=== PATIENT | female | born 1960 | race Caucasian/White ===

== ENCOUNTER 2019-01-12 06:06 | Inpatient (IN) | payer OTHER, SELFPAY ==
[2018-12-29 07:57] VITALS: BMI 25.3
[2019-01-12] VITALS (19 sets, daily range): BP systolic 99–128; BP diastolic 53–91; PULSE 68–898; RESP 5–96; TEMP 35.9–36.9; O2SAT 13–99; BMI 24.9
--- NOTE | 2019-01-12 | DI.RAD.S_ITS ---
PROCEDURE: XR HIP W PEL IF DONE LT 2V INDICATIONS: POST OPERATIVE LEFT HIP TECHNIQUE: AP pelvis and lateral view of the left hip acquired. [facility] 10[id number]FOR[facility], 03/13/2017, 12:35. FINDINGS: Bones: Patient is status post left hip arthroplasty, with hardware components in expected positions. The hip joint appears congruent. The visualized bony structures appear intact. Soft tissues: Overlying postoperative changes are noted. No suspicious soft tissue densities. IMPRESSION: Prior right total hip arthroplasty appears intact, normal alignment after placement of left total hip arthroplasty today. Dictated by: Mayur Broderick M.D. on 01/12/2019 at 13:48 Approved by: Mayur Broderick M.D. on 01/12/2019 at 13:49
--- NOTE | 2019-01-12 06:00 | DI.RAD.S_ITS ---
PROCEDURE: XR HIP W PEL IF DONE LT 2V INDICATIONS: left SARABJIT, anterior TECHNIQUE: 2 view(s) of the hip acquired. COMPARISON: [facility], CR, [id number] W PEL IF PERFORMED, 03/13/2017, 12:35. FINDINGS: Bones: Patient is status post preparation for subsequent left-sided total hip arthroplasty, with preliminary hardware components in expected positions. The hip joint appears congruent. The visualized bony structures appear intact. Soft tissues: Overlying intraoperative changes are noted. No suspicious soft tissue densities. IMPRESSION: Preparation for placement of spinal components of left total hip arthroplasty, normal alignment established. Dictated by: Mayur Broderick M.D. on 01/12/2019 at 12:09 Approved by: Mayur Broderick M.D. on 01/12/2019 at 12:10
[2019-01-12] MEDS: LACTATED RINGERS 1,000 ML 42 ML IV ×3 (06:46→12:34)
[2019-01-12] MEDS: VANCOMYCIN 1,000 MG/200 ML PIGGYBACK 200 MG IV (06:54)
[2019-01-12] MEDS: ACETAMINOPHEN 325 MG TABLET 975 MG PO ×3 (06:55→20:43)
[2019-01-12] MEDS: PREGABALIN 75 MG CAPSULE PO (06:56)
--- NOTE | 2019-01-12 07:42 | PC.NURSE ---
Day shift: Not on AC unit at this time.
--- NOTE | 2019-01-12 07:44 | P.OP_ITS ---
Operative Date/Time/Diagnoses Date of procedure: 01/12/19 Time of procedure: 07:59 Pre-op diagnosis: left hip OA Post-op diagnosis: same Procedure & Clinicians Procedure: left total hip arthroplasty Same procedure as scheduled: Yes Indications: The patient has had progressively worsening left hip pain with radiographic changes consistent with arthritis. Non-operative management has failed and the patient has requested total hip replacement. The risks, benefits and alternatives to surgery were discussed with the patient prior to proceeding. Risks discussed included, but were not limited to, failure to relieve pain, leg length discrepancy, dislocation, stiffness, infection, nerve damage, deep venous thrombosis, pulmonary embolism, stroke, coma, heart attack, permanent paralysis and , as well as the potential need for eventual revision of the prosthetic. Surgeon: Zoë Rice Corporate Representative: Karissa Zendejas Anesthesia Type: General and Spinal Operative Notes Findings: Severe left hip osteoarthritis with a tense effusion, adequate quality bone, adequate stability Closure Type: primary Prosthetic devices, grafts, tissues, transplants, or devices: Rice and Nephew 54 R3, size 7 high offset anthology, -3 x 36 Estimated Blood Loss (mL): 250 Blood products transfused: none Procedure in detail: The patient was brought to the operating room. Patient was carefully positioned in the supine position. Time-out was performed and antibiotics were given. Anesthesia was induced. She was positioned in the on the table in order to allow hyperextension of the hip. The left lower extremity was prepped and draped in a standard sterile fashion. An anterior left hip incision was made 1 fingerbreadth lateral to the anterior superior iliac spine and extended distally towards the greater trochanter. Dissection was carried out through skin and subcutaneous tissues. The skin and subcutaneous tissues were carefully injected with bupivacaine with epi. Superficial hemostasis was achieved. The fascia over the tensor fascia shahab was defined and incised with a knife. Two Allis clamps were used to grasp the fascia. Tensor fascia shahab was retracted laterally. A gelpi retractor was placed. Dissection was carried out down along the neck. The circumflex vessels were carefully identified and cauterized with the Aqua Mantis. There was good visualization of the femoral neck. A Cobra was placed superior to the neck and the gluteus fibers were carefully stripped from that superior aspect of the capsule. A 2nd retractor was placed along the inferior aspect of the neck. The rectus insertion along the capsule was partially released. A 3rd retractor that was then gently placed over the rim of the acetabulum under the rectus. Capsule was carefully incised and released from the intertrochanteric line circumferentially superior to the mid sagittal line and inferiorly to the mid sagittal line until the lesser trochanter was palpable. A tag stitch was placed both in the superior and inferior limb of the capsular insertion. Along the acetabulum capsule was also released up to the mid sagittal 12:00 position. A portion of the labrum was resected. A saw was used to perform an osteotomy at the level of the intertrochanteric line and the junction of the superior femoral neck leaving approximately 1 finger breath of residual inferior neck above the lesser trochanter. A 2nd cut was made along the femoral neck at the base of the head and a napkin ring of neck was removed. Corkscrew was placed in the femoral head and the head was removed without difficulty. Retractors were then repositioned around the acetabulum. Residual labrum was resected and additional osteophytes were removed. A reamer that was 4 mm below the templated size was placed by hand in the acetabulum and it was reamed to centralize the acetabulum. It was then reamed up to 2 under the templated size and fluoroscopy was brought in to confirm the position of the reaming and depth of reaming. I reamed 1 under the anticipated size. A trial cup was placed and noted that it was appropriately sized and fluoroscopy confirmed position and depth. The component was open and inserted without difficulty fluoroscopic imaging was used to confirm that the cup had been adequately seated and was well positioned. Neutral poly liner was placed. The cup was tested and noted to be stable. Attention was then directed to the femur. The femur was gently hyperextended additional capsular release was performed as needed in order to allow adequate visualization of the proximal femur with elevation of the femur. Patient was placed in a hyperextended slightly adducted position with maximum external rotation. Box osteotome was used to check for any residual neck as well as sclerotic bone along the trochanter. [place] pepper was placed in the femur. Additional broaching was performed. Canal finder was used to determine the alignment of the canal and position. Size 1 broach was placed. The canal was then appropriately broached up to the templated size as long as there was adequate stability of the broach and serial advancement of the broach without excessive impingement. Specific attention was directed at avoiding varus attempting to direct the distal aspect of the broach more anteriorly and avoiding excessive anteversion. Trial reduction showed acceptable range of motion, good stability, no posterior impingement, baptism of leg length and appropriate lateral shuck. I also hyperflexed the hip and checked that there was no impingement anteriorly and there was good stability with flexion, abduction and internal rotation. The stem was placed without difficulty. Repeat trial reduction and x-ray showed acceptable overall position, length, and no evidence of the femoral fracture. Final head was placed. Wound was meticulously irrigated with normal saline. The hip was reduced and additional Exparel and Marcaine were injected. The capsule was closed with interrupted nonabsorbable sutures. The fascia of the tensor was closed with interrupted and running Vicryl. No drain was placed. Any tensor fascia shahab muscle that appeared to be contused or injured which was a minimal amount was carefully resected. Capsule around the tensor was injected with Exparel and Marcaine. The skin was closed with barbed stitches for the subcutaneous tissue and skin. We also used surgical glue. The wound was dressed sterilely. Brief Betadine soak was also used and was meticulously irrigated with normal saline. Patient was transferred to recovery room in satisfactory condition. Complications: none Post-operative Condition: stable Disposition: Acute Care Plan for aftercare: The patient will be maintained on a standard total hip replacement protocol with weight bearing as tolerated and anterior hip precautions. The patient will receive Aspirin and sequential compression devices for DVT prophylaxis. The patient will be discharged home when safe for the home environment.
--- NOTE | 2019-01-12 07:44 | PM.PREOP ---
Pre-operative Note Interval Note History & Physical reviewed/Exam performed by Physician: Yes Changes to H&P: No
[2019-01-12] MEDS: CEFAZOLIN 2 GM/100 ML FROZ.PIGGY IV ×2 (08:08→15:58)
--- NOTE | 2019-01-12 09:25 | SUR.OPER ---
Supine, head on pillow, torso on padded hana table. Post at patient's groin. Operative arm padded with foam pad and then taped over their chest and waist to table. Non-operable arm secured on arm board <90 degrees abduction.
[2019-01-12] MEDS: BUPIVACAINE LIPOSOME 266 MG/20 ML VIAL INJ (09:34)
[2019-01-12] MEDS: BUPIVACAINE 0.25% W/ EPI 30 ML VIAL 60 ML INJ (09:34)
[2019-01-12] MEDS: SODIUM CHLORIDE IRRIG SOLUTION 250 ML, POVIDONE-IODINE SPONGE STICKS 1 APPLIC IRR (09:35)
[2019-01-12] MEDS: HYDROMORPHONE 2 MG INJ 0.5 MG IV ×4 (12:53→13:15)
[2019-01-12] MEDS: hydrOXYzine 50 MG/ML INJ 25 MG IM (12:56)
[2019-01-12] MEDS: LORazepam 2 MG/ML INJ 0.25 MG IV (13:19)
--- NOTE | 2019-01-12 13:35 | SUR.PHASEI ---
Pt arrived arousable, initially pain free, as she became more awake, c/o pain, medicated with dilaudid, vistaril and ativan, pt now more comfortable and able to rest between care. Report attempted RN unavailable. To call when available.
[2019-01-12] MEDS: OXYCODONE IR 5 MG TABLET 10 MG PO (14:29)
[2019-01-12] MEDS: LACTATED RINGERS 1,000 ML 125 ML IV (14:30)
[2019-01-12] MEDS: GABAPENTIN 400 MG CAPSULE 600 MG PO (15:57)
[2019-01-12] MEDS: ONDANSETRON 4 MG ODT PO (15:59)
--- NOTE | 2019-01-12 16:14 | CM.DANOTE ---
DCP/Assessment: Reviewed chart. Patient is a 58yr old female admitted to [facility] for left SARABJIT performed today by Dr. Rice. Primary payor is 1)[employer]. Met with patient explained CM/SW role. Patient alert and oriented at time of visit. Patient denies any d/c planning needs and hopes to go home tomorrow 01-13-19. Patient reports that she has already been seen by therapy. Patient has supportive family and all needed DME. Patient plans to start outpatient therapy at [facility] on January 18. No identified d/c planning needs at this time. P: Home when stable. SUE Barclay Discharge Planning/Care Management Advanced directive, confirm from FAMILY Start: 01/12/19 14:50 Freq: Q24H Status: Active Protocol: Document 01/12/19 14:51 CM (Rec: 01/12/19 14:52 CM [id number]) Advance Directive, confirm on record Time 14:52 Person contacted Pt Copy received No CM Discharge Assessment Start: 01/12/19 16:13 Freq: Status: Active Protocol: Document 01/12/19 16:13 KJS (Rec: 01/12/19 16:14 KJS [id number]) Discharge Planning Assessment Assigned Home Security Professional SUE Barclay Contact Information [place]. [phone] Advance Directives? Yes Advance Directives on File Yes History Provided By Patient,Medical Record Prior Living Arrangements House Household Members significant other Type of transporation used prior to Drives own vehicle admit Independent with ADL's Yes Is patient alert and oriented? Yes Caregiver for Another No DME Already Rented / Owned Bath Bench,FWW / Walker,Cane Patient/Family Preference OP PT Therapy Barriers to Discharge No Discharge Plan Home Transportation Arrangement Family to provide transport Whiteboard Updated in Patient Room with Yes name and ext. # of Home Security Professional Review Status In Process Next Review Type Continued Stay Review Pre-Anesthesia Assessment Start: 12/29/18 07:57 Freq: Status: Active Protocol: Document 12/29/18 07:57 CAB (Rec: 12/29/18 09:47 CAB [id number]) Pre-Anesthesia Assessment Patient Information Reviewed Via Phone Assessment Assessment Completed With Patient Diagnostic Results BMP/CMP,CBC,EKG,Urinalysis Comment Outside lab/EKG scanned to record Primary Care Provider Cynthia Gilbert Seen Specialist in Last 12 Months Yes Specialist Seen Instructor Adjunct Surgical Technician,Asphalt Roller Person, Orthopedist Primary Language Trinidadian Crystal Growing Technician Required No Height 170.18 cm Weight 73.482 kg Body Mass Index (BMI) 25.3 Hearing Ability Normal Visual Assist Magnifying Glass Dentition Type Teeth, Natural Present Other Aids No Hx Anesthesia Reactions Yes: Violently ill after lip surgery Hx Family Anesthesia Reaction Yes: Mom violently ill/nausea/ vomiting Hx Malignant Hyperthermia No Hx Blood Transfusions No Anesthesia Review Requested Yes: Surgeon requested re: Cardiac alcohol intake current alcohol intake frequency 0-2 drinks per day Smoking Status Former smoker Tobacco type cigarettes how long ago did patient quit smoking Quit 2000 Substance Use Type marijuana Comment CBD oil Pain Present Pain Reported Musculoskeletal Symptoms Abnormal Gait,Difficulty Walking,Joint Pain,Muscle Spasms,Numbness,Radiating Pain into Limb,Tingling History of Falling (Recent or History of No ) Patient is completely paralyzed or No completely immobile Mental Status Oriented to own ability Is patient on oxygen? No Does patient have HALL/SOB No Hx Sleep Apnea No Currently Taking a Beta Sophie No Can You Climb a Flight of Stairs Without Yes SOB Hx Chest Pain Yes: By Cardiology note, pt did not mention Hx SOB No Hx Syncope or Dizziness No Anti-Coagulant Therapy No Has a Instructor Adjunct Surgical Technician Yes: Dr. Castaneda-last visit scanned to record Cardiac Testing Yes: NM Perf 02/02/18 scanned to record Hx Pacemaker/ICD No Pacemaker Rep Required? 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 Marital Status Lives With significant other Prior Living Arrangements House Number of Floors (Floors) Two Floors Support System Child/Children,Significant Other Does the Patient Have Assistance After Yes Surgery Patient Discharge Plan Description Return Home Comment Pt not advised on length of stay per surgeon's office Feels Safe in Current Environment Yes Been Physically Hurt or Threatened By a No Person in Current Environment Do you have thoughts of harming yourself None or others? Are you currently considering suicide? No Do you have a plan to hurt yourself or No Plan others? Do You Have Any Spiritual Beliefs That No May Affect Your HC Choices? Do You Have Any Cultural Practices That No May Affect Your HC Choices? Comment Livan Who Can We Speak to About Patient's Care Family, friends Identifying Code for Release of Patient Declines to issue Information Health Care Proxy/Next of Kin Rogers (S.O.) Niya ( sister) Health Care Proxy Phone Number Rogers: [phone] Niya: Pt to update dos Emergency Contact Name Rogers (S.O.) Niya ( sister) Emergency Contact Phone Number Rogers: [phone] Niya: Pt to update dos Advance Directives? Yes Advance Directives on File Yes Power of Supervisor Pastry Yes Power of Supervisor Pastry Phone Number Rogers (S.O.) Comment [phone] PAC Instructions Do not shave/clip surgical site,Durable medical equipment ,Medications to take/avoid, Nasal antibiotic,No ETOH/ petroleum product on skin DOS, Post-op transportation,Pre- surgical wash,Sturdy shoes/ comfortable clothes,Do not bring valuables and remove jewelry
--- NOTE | 2019-01-12 16:53 | PT.IIE ---
Current Diagnoses Unilateral primary osteoarthritis, left hip (01/12/19) Surgery Performed Operation Date: 01/12/19 07:45 Actual Procedures p Total Hip Arthroplasty/Anterior Approach(Left) - Zoë Rice MD Surgical History (Last Updated 12/30/18 @ 15:14 by Rayne Lubin RN) History of bilateral tubal ligation (Acute) History of surgery (Acute) History of surgery (Acute) Hx of cardiac catheterization (Acute 09/05/15) S/P epidural steroid injection (Acute) Medical History (Last Updated 12/30/18 @ 15:13 by Rayne Lubin RN) Atypical chest pain (Acute) Rodríguez's esophagus (Acute) Coronary artery vasospasm (Acute) Edema (Acute) Former smoker (Acute) GERD (gastroesophageal reflux disease) (Acute) H/O: hysterectomy (Acute) Hiatal hernia (Acute) HLD (hyperlipidemia) (Acute) HTN (hypertension) (Acute) Hx of tooth extraction (Acute 11/25/18) Ischemic cardiomyopathy (Acute) Migraines (Acute) Neuropathy (Acute) Non-STEMI (non-ST elevated myocardial infarction) (Acute ~08/2015) Numbness (Acute) PVCs (premature ventricular contractions) (Acute) Scoliosis (Acute) Venous insufficiency (Acute) Physical Therapy Inpatient Evaluation/Re-Eval M1 PT/OT-IP Prior Functional Status Start: 01/12/19 15:00 Freq: NEEDED Status: Active Protocol: Document 01/12/19 16:29 AW (Rec: 01/12/19 16:53 AW [id number]) Medical Review Prior Functional Status Medical History Reviewed Yes Diet/Fluid Consistency Regular Communication Pt able to make needs known. Mobility and Gait Parisa was independent with all functional mobility, requiring no assistive device Activities of Daily Living and IADL's Independent for all ADL/IADL's Prior Functional Level (Other details) Pt reports no falls in the past year Social History Household Members significant other Living Arrangements House Number of Floors (Floors) Two Floors Number of Stairs To Enter/Railing? 3 PEDRO with no railling; 13 steps from main living level to second floor. Bedroom is on 2nd floor. Pt anticipates needing to navigate stairs at most once or twice per day. She also notes she has an air mattress so she can stay on main level if she needs to. Home Environment Standard Height Toilet,Walk in Shower Home Equipment Front Wheel Walker,Straight Cane Additional Social History Comment Pt's partner is retired. He is available and able to assist in any capacity. 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 M2 PT-IP Current Condition Start: 01/12/19 15:00 Freq: NEEDED Status: Active Protocol: Document 01/12/19 16:29 AW (Rec: 01/12/19 16:53 AW [id number]) Physical Therapy Current Condition Current Condition Evaluation Date 01/12/19 Treatment Diagnosis s/p L anterior SARABJIT, impaired transfers and gait Precautions Anterior Hip Precautions No Hip Extension,No Hip External Rotation Other Precautions Pt cautioned to avoid turning to the right in order to maintain external rotation precaution. If she must turn to the right, she was advised to take shuffling steps. Weight Bearing Status Weight Bearing Status Weight Bear as Tolerated M3 PT-IP Subjective Start: 01/12/19 15:00 Freq: NEEDED Status: Active Protocol: Document 01/12/19 16:29 AW (Rec: 01/12/19 16:53 AW [id number]) Subjective Physical Therapy Visit Type Type Initial Evaluation Visit Start Time 15:10 Visit Stop Time 15:49 Total Visit Minutes 39 Number of CLAIMS CORRESPONDENCE CLERK Visits 0 Physical Therapy Visit Comments Patient Comments Pt is excited to get moving even though she is in a lot of pain Patient Goals Pt wishes to return home as soon as possible with assist from her partner Therapy Pain Assessment Pain When Pain Assessed During Mobility Pain Present Pain Present Pain Reported Location hip/knee/back Intensity 4 Scale Used Numeric (1 - 10) Description Aching,Burning Pain Management Techniques Apply Cold,Modification of Treatment,Timing of Activity with Medications M4 PT-IP Mobility and Gait Start: 01/12/19 15:00 Freq: NEEDED Status: Active Protocol: Document 01/12/19 16:29 AW (Rec: 01/12/19 16:53 AW [id number]) PT-Bed Mobility Assessment Supine to Sit Supine to Sit Standby Assistance,1 Person Assistance Sit to Supine Sit to Supine Minimal Assistance,1 Person Assistance Scooting Scooting to Edge of Bed Standby Assistance Scooting Up and Down in Bed Standby Assistance PT-Transfer Assessment Sit to and From Stand Sit to and from Stand Contact Guard Assistance,1 Person Assistance,Use of Upper Extremities Equipment Transfer Assistive Device Gait Belt,Front Wheeled Walker Orthotic/Prosthetic Devices or Brace: No Transfers Transfer Destination Bed Transfer Technique Stand Step Pivot Transfer Ability Level of Assist Contact Guard Assistance Comments Mobility Comments Pt required CGA for sit <> stand transfers and verbal cues to use upper extremities to push off from bed surface. Gait Assessment Gait Gait Assistance Required: Contact Guard Assist Distance (Feet) 35 Able to Maintain Weight Bearing Status Yes During Gait Assistive Devices Assistive Device Gait Belt,Front Wheeled Walker Orthotic/Prosthetic Devices or Brace: No Gait Deviations General Gait Pattern Antalgic,Decreased Stride Length,Step-to Gait Factors Limiting Gait Function Factors Limiting Gait Function Decreased Activity Tolerance, Decreased Strength,Pain Comments Gait Comments Pt required CGA for steadiness during ambulation with FWW. She reported 4/10 pain while walking, but showed good effort. PT-Balance Assessment Sitting Balance and Reactions Static Sitting Balance Ability Good Dynamic Sitting Balance Ability Good Standing Balance and Reactions Static Standing Balance Ability Good Dynamic Standing Balance Ability Fair M5 PT-IP Objective Assessments Start: 01/12/19 15:00 Freq: NEEDED Status: Active Protocol: Document 01/12/19 16:29 AW (Rec: 01/12/19 16:53 AW [id number]) Orientation Orientation/Cognition Level of Alertness Alert Orientation Name,Month,Place,Situation Language Function Ability No Deficits Noted Safety Awareness Understands Safety Issues Memory Description No Deficits Noted Gross Range of Motion Upper Extremity ROM Assessment Within Functional Limits Lower Extremity ROM Assessment Within Functional Limits Strength Upper Extremity Strength Assessment Within Functional Limits Lower Extremity Strength Assessment Left Impaired Coordination Assessment Gross Coordination Gross Coordination WNL Sensation Assessment Sensation Gross Sensation WNL Muscle Tone Muscle Tone WNL Yes M6 PT-IP Treatment Start: 01/12/19 15:00 Freq: NEEDED Status: Active Protocol: Document 01/12/19 16:29 AW (Rec: 01/12/19 16:53 AW [id number]) Physical Therapy Treatment Exercises Exercises Ankle Pumps,Gluteal Sets,Quad Sets,Heel Slides Education Education Provided Precautions,Weight Bearing Status,Post-Op Packet,Safety M7 PT-IP Assessment and Plan Start: 01/12/19 15:00 Freq: NEEDED Status: Active Protocol: Document 01/12/19 16:29 AW (Rec: 01/12/19 16:53 AW [id number]) PT Summary Assessment and Plan Potential Rehabilitation Potential Good Status of Condition at Evaluation Evolving Summary Impairments Pain,ROM,Strength,Bed Mobility ,Transfers,Gait,Activity Tolerance Assessment Summary Pt is an active 58 yo woman with history of R SARABJIT in 2017. PLOF: Parisa was independent with all functional mobility and ADL/IADL's. CLOF: Pt required min assist for sit to supine transfer in order to support the operative leg. At most, she required CGA for other transfers and ambulation with FWW. PT reviewed plan of care, post-op anterior hip precautions, weight bearing status, and post-op exercises. PT recommends discharge to home with her partner's assist when medically cleared. Goals Bed Mobility Goal Independent Transfer Goal Standby Assistance Gait Goal Standby Assistance Gait Distance 100 Other Goals Pt to ascend/descend 3 steps with no rail and 13 steps with L railing (or left rail and least restrictive assistive device) CGA. Days to Meet Goals 2 Frequency of Treatment Frequency Of Treatment Twice a Day Treatment Plan Physical Therapy Treatment Plan Bed Mobility Training,Transfer Training,Gait Training, Therapeutic Exercise,Balance Retraining,Post Op Education, Discharge Planning,Hot or Cold Pack,Neuromuscular Re-ed, Coordination Retraining,Manual Therapy Other Recommendations and Next Treatment plan to progress gait distance Focus and trial stairs Recommendations To Nursing Amount of Assist Needed Standby Assistance,1 Person Assist Discharge Recommendations PT Discharge Recommendations Home with Assistance, Outpatient PT
[2019-01-12] MEDS: ONDANSETRON 4 MG/2 ML INJ IV ×2 (17:11→20:44)
[2019-01-12] MEDS: GABAPENTIN 600 MG TABLET PO ×2 (17:12→20:44)
[2019-01-12] MEDS: HYDROMORPHONE 2 MG TABLET 4 MG PO (18:22)
[2019-01-12] MEDS: methIMAzole 5 MG TABLET PO (20:43)
[2019-01-12] MEDS: ATORVASTATIN 20 MG TABLET 40 MG PO (20:46)
[2019-01-12] MEDS: DOCUSATE 100 MG CAPSULE PO (20:46)
[2019-01-12] MEDS: ASPIRIN EC 81 MG TABLET PO (20:46)
[2019-01-12] MEDS: MORPHINE ER 15 MG TABLET PO (20:48)
--- NOTE | 2019-01-12 21:36 | PC.NURSE ---
Pt has been up with PT and up to [facility] tolerating pain well. She motivated to discharge. She uses her IS frequently. She is eating and drinking voiding clear yellow qs. Her pain is 3-4/10.
[2019-01-13] MEDS: CEFAZOLIN 2 GM/100 ML FROZ.PIGGY IV
[2019-01-13] MEDS: OXYCODONE IR 5 MG TABLET 10 MG PO ×3 (00:01→08:44)
[2019-01-13 00:12] VITALS: BP 101/56; PULSE 67; RESP 16; TEMP 36.7; O2SAT 97
[2019-01-13 03:50] VITALS: BP 111/51; PULSE 71; RESP 16; TEMP 36.5; O2SAT 96
--- NOTE | 2019-01-13 04:23 | PC.NURSE ---
Pt VSS, lung sounds are clear. Left hip has clean, dry intact aquacell dressing. Patient has been up to bedside commode and is in quite a bit of pain w/ moving around. Patient has been medicated w/ 10mg Oxycodone Q4 hrs. SCD's applied bilaterally. Pt denies nausea.
[2019-01-13] MEDS: PANTOPRAZOLE 40 MG TABLET PO (06:19)
[2019-01-13 07:00] VITALS: BP 100/64; PULSE 75; RESP 16; TEMP 36.3; O2SAT 98
[2019-01-13 07:10] LABS: Hematocrit 34.2 % (36-46); Hemoglobin 11.5 g/dL (12.0-16.0)
--- NOTE | 2019-01-13 08:17 | P.DS_ITS ---
History of Present Illness History of Present Illness Date Patient Seen: 01/13/19 Time Patient Seen: 08:18 Chief complaint: [id number] Left Total Hip Arthroplasty Narrative: Pain moderate. Denies fever chills. No nausea vomiting. Patient does have caregiver home. She has 3 steps into her house. She would like to go home today if safe to do so. She was up with physical therapy. She is able to urinate on her own. Otherwise without complaints. Discharge Providers Provider Date of admission: 01/12/19 06:06 Discharge Date: 01/13/19 Primary care physician: Cynthia Gilbert PA-C Consults: 12/30/18 15:26 Consult to Anesthesiology Routine Comment: Consulting Provider: Anesthesiologist Reason for consultation: Surgeon requested re: Cardiac 01/12/19 06:00 Consult to Anesthesiology Routine Comment: Consulting Provider: Anesthesiologist Reason for consultation: Regional block for post operative pain control 01/12/19 14:12 Consult to Discharge Planning Routine Comment: Consult to Physical Therapy Evaluate & Treat Comment: Physician Instructions: post op SARABJIT protocol Consult to Respiratory Therapy Evaluate & Treat Comment: Physician Instructions: Evaluate and treat 01/12/19 14:13 Consult to Respiratory Therapy Evaluate & Treat Comment: Physician Instructions: Evaluate and treat Discharge provider: Siva Richmond PA-C Summary Hospital Course Discharge Diagnosis: Status post left total hip arthroplasty, anterior due to severe left hip OA Chronic pain Hospital Course: [address] [address] Operative Note Patient: Parisa Gallo R#: [id number] : 9Acct:[id number] Age/Sex: 58 / F Date of Service: 01/12/19 Provider: Zoë Rice MD Operative Date/Time/Diagnoses Date of procedure: 01/12/19 Time of procedure: 07:59 Pre-op diagnosis: left hip OA Post-op diagnosis: same Procedure & Clinicians Procedure: left total hip arthroplasty Same procedure as scheduled: Yes Indications: The patient has had progressively worsening left hip pain with radiographic changes consistent with arthritis. Non-operative management has failed and the patient has requested total hip replacement. The risks, benefits and alternatives to surgery were discussed with the patient prior to proceeding. Risks discussed included, but were not limited to, failure to relieve pain, leg length discrepancy, dislocation, stiffness, infection, nerve damage, deep venous thrombosis, pulmonary embolism, stroke, coma, heart attack, permanent paralysis and , as well as the potential need for eventual revision of the prosthetic. Surgeon: Zoë Rice Manufacturing Plant Technician: Karissa Zendejas Anesthesia Type: General and Spinal Operative Notes Findings: Severe left hip osteoarthritis with a tense effusion, adequate quality bone, adequate stability Closure Type: primary Prosthetic devices, grafts, tissues, transplants, or devices: [employer]hew 54 R3, size 7 high offset anthology, -3 x 36 Estimated Blood Loss (mL): 250 Blood products transfused: none Patient admitted to the hospital for left total hip arthroplasty. Patient consented to the same. Patient taken to the OR underwent left total hip arthr oplasty, anterior. Patient back in her room recovering well as in stable condition. Patient was up mobilizing with physical therapy yesterday. She was able to use the bathroom last night with assistance from the nurse. She wishes to go home today if safe to do so. Exam Vital Signs (past 8 hours): - 01/13/19 03:50 Temperature 97.7 F Pulse Rate 71 Respiratory Rate 16 Blood Pressure 111/51 L Pulse Oximetry 96 Oxygen Delivery Method Room Air Oxygen Flow Rate 2 Narrative Exam Narrative: Pleasant 4-year-old female resting comfortably in bed in no apparent distress. Left hip dressing is clean, dry and intact. Left lower leg is warm and dry. Neurovascular status is intact distally. Objective Labs Result Diagrams: 01/13/19 06:53 Labs: Laboratory Results - last 24 hr 01/13/19 06:53 Hgb 11.5 L Hct 34.2 L Discharge Plan Discharge Plan Patient Disposition: Home Discharge comment: DC home today after PT Discharge Med Rec/Prescriptions Prescriptions: New aspirin 81 mg Tablet,Delayed Release (Dr/Ec) 81 mg PO BID Qty: 60 RF: 0 Continued atorvastatin [Lipitor] 40 MG tablet 40 mg PO HS Qty: 0 RF: 0 Dexilant 60 MG capsule,biphase delayed releas 60 mg PO QAM Qty: 0 RF: 0 gabapentin [Neurontin] 400 MG capsule 600 mg PO TID Qty: 0 RF: 0 morphine 15 MG tablet extended release 15 mg PO BID Qty: 0 RF: 0 oxycodone 5 MG capsule 30 mg PO QDAY PRN (Reason: Pain) Qty: 0 RF: 0 furosemide 40 MG tablet 40 mg PO QDAY PRN (Reason: Edema) Qty: 0 RF: 0 methimazole 5 mg Tablet 5 mg PO BID RF: 0 Discontinued aspirin 81 MG tablet,delayed release (DR/EC) 81 mg PO QDAY Qty: 0 RF: 0 Follow up/Referrals: Cynthia Gilbert PA-C [Primary Care Provider] - Zoë Rice MD [Physician] - (follow up 1 wk) Provider Discharge Instructions Diet: Diet as Tolerated Activity: WBAT, anterior hip precautions Cold/Heat Therapy: ice as needed Other treatments: Tylenol 500 mg every 4 hours Skin/Wound/Dressing Care Report to your healthcare provider any signs of infection, such as:: chills, fever, increased pain, unusual drainage and unusual redness Dressing: Keep clean and dry Discharge Data Primary Care Provider: Cynthia Gilbert Quality VTE Deep Vein Thrombosis/Pulmonary Embolism Present on Admission: No
[2019-01-13] MEDS: MORPHINE ER 15 MG TABLET PO (08:44)
[2019-01-13] MEDS: ASPIRIN EC 81 MG TABLET PO (08:45)
[2019-01-13] MEDS: GABAPENTIN 600 MG TABLET PO (08:45)
[2019-01-13] MEDS: methIMAzole 5 MG TABLET PO (08:45)
[2019-01-13] MEDS: ACETAMINOPHEN 325 MG TABLET 975 MG PO (08:45)
[2019-01-13] MEDS: DOCUSATE 100 MG CAPSULE PO (08:45)
[2019-01-13] MEDS: POLYETHYLENE GLYCOL 3350 17 GM POWD.PACK PO (08:54)
--- NOTE | 2019-01-13 10:34 | PC.NURSE ---
Addendum entered by Florencia Mercado R.N. 01/13/19 11:41: DC - cleared by phys therapy after stair practice, when spouse arrived, assisted with clothing, hep lock dc'd, discussed care aquacell dsg, belongings gathered including own fww, reg bag, own medications returned from pharmacy, ice pack provided for ride home, has cell phone and golf superintendent, script provided, already has narcotics at home, assisted to wc and international marketing coordinator escorted to spouse's car. Original Note: AM NOTE - pt is alert, states l hip pain and knee pain 6 on scale 0/10, discussed pain mgt, pt takes long acting morphine bid and uses oxycodone in between, given 15mg morphine and 10mg po oxycodone along with the scheduled tylenol, ice pack to chronic knee pain, hx neuropathy feet, able wiggle toes, denies nausea, + bt, added miralax this am, acqumarc cdi, hr 84, ra 98%.
--- NOTE | 2019-01-13 11:10 | PT.IPTN ---
Current Diagnoses Unilateral primary osteoarthritis, left hip (01/12/19) Surgery Performed Operation Date: 01/12/19 07:45 Actual Procedures p Total Hip Arthroplasty/Anterior Approach(Left) - Zoë Rice MD Physical Therapy Treatment Note M2 PT-IP Current Condition Start: 01/12/19 15:00 Freq: NEEDED Status: Discharge Protocol: Document 01/12/19 16:29 AW (Rec: 01/12/19 16:53 AW [id number]) Physical Therapy Current Condition Current Condition Evaluation Date 01/12/19 Treatment Diagnosis s/p L anterior SARABJIT, impaired transfers and gait Precautions Anterior Hip Precautions No Hip Extension,No Hip External Rotation Other Precautions Pt cautioned to avoid turning to the right in order to maintain external rotation precaution. If she must turn to the right, she was advised to take shuffling steps. Weight Bearing Status Weight Bearing Status Weight Bear as Tolerated M3 PT-IP Subjective Start: 01/12/19 15:00 Freq: NEEDED Status: Discharge Protocol: Document 01/13/19 11:10 GGTito (Rec: 01/13/19 11:55 GGD [id number]) Subjective Physical Therapy Visit Type Type Treatment Note Visit Start Time 10:30 Visit Stop Time 11:10 Total Visit Minutes 38 Number of COTTON FARMER Visits 1 Physical Therapy Visit Comments Patient Comments Pt states her knee is hurting and having trouble moving her leg. Therapy Pain Assessment Pain When Pain Assessed During Mobility Pain Present Pain Present Pain Reported Location hip/knee/back Intensity 5 Scale Used Numeric (1 - 10) M4 PT-IP Mobility and Gait Start: 01/12/19 15:00 Freq: NEEDED Status: Discharge Protocol: Document 01/13/19 11:10 GGTito (Rec: 01/13/19 11:55 GGD [id number]) PT-Transfer Assessment Sit to and From Stand Sit to and from Stand Standby Assistance,Use of Upper Extremities Equipment Transfer Assistive Device Gait Belt,Front Wheeled Walker Orthotic/Prosthetic Devices or Brace: No Transfers Transfer Destination Chair,Wheelchair Transfer Technique Stand Step Pivot Transfer Ability Level of Assist Contact Guard Assistance Gait Assessment Gait Gait Assistance Required: Contact Guard Assist Distance (Feet) 50 Able to Maintain Weight Bearing Status Yes During Gait Assistive Devices Assistive Device Gait Belt,Front Wheeled Walker Orthotic/Prosthetic Devices or Brace: No Gait Deviations General Gait Pattern Antalgic,Decreased Stride Length,Step-to Gait Factors Limiting Gait Function Factors Limiting Gait Function Decreased Activity Tolerance, Decreased Strength,Pain Stair Climbing Assessment Evaluation Level of Assist On Stairs Contact Guard Assistance, Minimal Assistance,1 Person Assistance Devices Stair Climbing Assistive Devices Front Wheel Walker,Left Railing Technique/Endurance Stair Climbing Direction Ascend and Descend Stair Climbing Technique Step to Step Number of Steps Climbed 3 Stair Climbing Set # Repetitions (reps) 3 Comments Stair Climbing Comments Pt ambulated 3 stairs with FWW with min A for FWW management with therapist and then once with . She ambulated 3 steps with left rail with SBA. M5 PT-IP Objective Assessments Start: 01/12/19 15:00 Freq: NEEDED Status: Discharge Protocol: Document 01/12/19 16:29 AW (Rec: 01/12/19 16:53 AW [id number]) Orientation Orientation/Cognition Level of Alertness Alert Orientation Name,Month,Place,Situation Language Function Ability No Deficits Noted Safety Awareness Understands Safety Issues Memory Description No Deficits Noted Gross Range of Motion Upper Extremity ROM Assessment Within Functional Limits Lower Extremity ROM Assessment Within Functional Limits Strength Upper Extremity Strength Assessment Within Functional Limits Lower Extremity Strength Assessment Left Impaired Coordination Assessment Gross Coordination Gross Coordination WNL Sensation Assessment Sensation Gross Sensation WNL Muscle Tone Muscle Tone WNL Yes M6 PT-IP Treatment Start: 01/12/19 15:00 Freq: NEEDED Status: Discharge Protocol: Document 01/13/19 11:10 GGD (Rec: 01/13/19 11:55 GGD [id number]) Physical Therapy Treatment Exercises Exercises Ankle Pumps,Gluteal Sets,Quad Sets,Heel Slides Education Education Provided Precautions,Weight Bearing Status,Post-Op Packet M7 PT-IP Assessment and Plan Start: 01/12/19 15:00 Freq: NEEDED Status: Discharge Protocol: Document 01/13/19 11:10 GGD (Rec: 01/13/19 11:55 GGD [id number]) PT Summary Assessment and Plan Summary Assessment Summary Pt improving with mobility. She was able to progress gait. She was safe and stable with stair mobility. She had increase in pain with left LE weight bearing. Pt safe for home D/C when medically stable . Frequency of Treatment Frequency Of Treatment Twice a Day Treatment Plan Physical Therapy Treatment Plan Bed Mobility Training,Transfer Training,Gait Training, Therapeutic Exercise,Balance Retraining,Post Op Education, Discharge Planning,Hot or Cold Pack,Neuromuscular Re-ed, Coordination Retraining,Manual Therapy Recommendations To Nursing Amount of Assist Needed Standby Assistance,1 Person Assist Discharge Recommendations PT Discharge Recommendations Home with Assistance, Outpatient PT
== END 2019-01-13 11:49 | disposition home or self-care (01) | DRG 470 ==
PROVIDERS: Admitting Provider Orthopaedic Surgery; PCP Physician Assistant; Visit Provider Orthopaedic Surgery
PROC: 0SRB02Z Replacement of Left Hip Joint with Metal on Polyethylene Synthetic Substitute, Open Approach (ICD-10-PCS; CPT 27130; principal; 2019-01-12 07:45)
DX: M16.12 Unilateral primary osteoarthritis, left hip (principal); I20.1 Angina pectoris with documented spasm; I50.32 Chronic diastolic (congestive) heart failure; I42.9 Cardiomyopathy, unspecified; Z96.641 Presence of right artificial hip joint; Z87.891 Personal history of nicotine dependence; G89.29 Other chronic pain; E78.5 Hyperlipidemia, unspecified; I11.0 Hypertensive heart disease with heart failure
CPT/HCPCS: 36415; 73502; 76000; 85014; 85018; 97110; 97116; 97161; 97530; C1776; C9290; J0171; J0690; J1100; J1170; J2060; J2250; J2274; J2405; J2704; J3010; J3410

== ENCOUNTER 2022-08-26 11:43 | Inpatient (IN) | payer OTHER, SELFPAY ==
[2019-01-12 14:40] VITALS: BMI 24.9
[2022-08-08 08:40] VITALS: BMI 27.6
[2022-08-26] VITALS (10 sets, daily range): BP systolic 130–177; BP diastolic 76–101; PULSE 73–88; RESP 12–18; TEMP 36.2–36.8; O2SAT 94–99; BMI 27.6
[2022-08-26] MEDS: LACTATED RINGERS 1,000 ML 42 ML IV ×2 (12:06→15:48)
[2022-08-26 12:18] LABS: COVID19 -Nasal RAPID Negative (Negative)
--- NOTE | 2022-08-26 13:53 | PM.PREOP ---
Pre-operative Note COVID-19 COVID-19 status: Negative Result date/Date tested (Pos, Neg/Pending): 08/25/22 Criteria for continued procedure: Expected advancement of disease process, Possibility delay results in more complex future surgery or treatment, Increased loss of function, Continuing or worsening of significant or severe pain, Deterioration of the patient's condition or overall health and Delay expected to result in less-positive ultimate med/surg outcome Interval Note History & Physical reviewed/Exam performed by Physician: Yes Changes to H&P: No
[2022-08-26] MEDS: CEFAZOLIN 2 GM/100 ML PREMIX 100 ML IV ×2 (15:00→22:33)
--- NOTE | 2022-08-26 15:25 | SUR.OPER ---
Supine on padded OR bed, head on pillow, arms padded and tucked at sides, legs uncrossed, safety belt at thigh, tape over blanket over lower legs .
[2022-08-26] MEDS: BUPIVACAINE 0.25% (PF) 30 ML, EPINEPHrine 0.15 MG INJ (15:49)
--- NOTE | 2022-08-26 17:05 | DI.RAD.S_ITS ---
PROCEDURE: XR CERVICAL SPINE 2V OR 3V INDICATIONS: C5-6, C6-7 ACDF TECHNIQUE: Three view(s) of the cervical spine were acquired. COMPARISON: None. FINDINGS: Three intraoperative fluoroscopic spot images of the cervical spine demonstrate ACDF hardware at the C5-6 and C6-7 levels. There is normal cervical spine alignment. Endotracheal tube is incidentally noted. IMPRESSION: 1. Expected intraoperative appearance post C5-6 and C6-7 ACDF. Dictated by: Sarina Ngo M.D. on 08/26/2022 at 17:15 Approved by: Sarina Ngo M.D. on 08/26/2022 at 17:16
--- NOTE | 2022-08-26 17:12 | PM.OP.1 ---
Operative Date/Time/Diagnoses Date of procedure: 08/26/22 Time of procedure: 14:25 Pre-op diagnosis: 1. C5-6, C6-7 spinal stenosis 2. Cervical spondylosis with radiculopathy Post-op diagnosis: same Procedure & Clinicians Procedure: 1. C5-6 C6-7 anterior cervical diskectomy and fusion 2. C5-6 C6-7 anterior interbody cage placement 3. C5-6 C6-7 anterior instrumentation with plate and screw placement in C5-C6 and C7 vertebrae 4. Utilization of microsurgical technique and operating microscope Same procedure as scheduled: Yes Indications: Patient has been having chronic neck pain and worsening cervical radiculopathy. Patient failed multiple conservative management with worsening pain weakness and numbness in her upper extremity. Patient has been having difficulty performing activity of daily living. After discussing risks benefits of treatment options, patient elected proceed with surgery. Surgeon: Chet Spence Field Sales Specialist: Siva Richmond Click Yes if Unassisted: No Anesthesia Type: General Operative Notes Closure Type: primary Specimen(s): none sent Prosthetic devices, grafts, tissues, transplants, or devices: Globus Extend Plate, Cervical Hedron C cages Estimated Blood Loss (mL): 5 Blood products transfused: none Procedure in detail: Patient was seen in the preoperative area. Risks and benefits of the surgery was discussed with the patient. Operative consent was obtained and placed in the chart. Patient was then taken to the operative room. Prophylactic antibiotic was given less than 0.5 hr prior to skin incision. General anesthesia was administered. Patient was placed into a supine position on her radiolucent table. Bilateral shoulders were taped down to allow proper C-arm imaging. Anterior cervical area was prepped and draped in a sterile fashion. Time-out was performed at this time. Using lateral C-arm imaging, the level between C5 and C7 was identified and marked on patient's neck. A oblique incision from midline towards medial border of sternocleidomastoid muscle was made. The platysma muscle was incised in line with skin incision. Metzenbaum scissor was used to develop the plane between the medial border of sternocleidomastoid d and the strap muscles medially. The carotid sheath and its contents were identified and protected behind the hand-held retractor during the entire case. The plane between the carotid sheath and strap muscles was developed with Metzenbaum scissors. Dissection was made down to the level of the anterior cervical fascia. Longus colli muscle was incised on the anterior aspect of vertebral bodies bilaterally from C5-C7. Spinal needle was placed into the C5-6 disc space and confirmed with lateral C-arm imaging. Using microsurgical technique and operative microscope, anterior cervical diskectomy was performed at C5-6 and C6-7 level. This was done by removing the disc material, removing the anterior and posterior osteophytes posterior longitudinal ligaments along with performing bilateral foraminotomies at both levels. Patient was found to have severe central and foraminal stenosis at both levels. Patient's stenosis was fully decompressed after decompression was completed. After the diskectomy was completed, 2 anterior interbody cages were obtained. The cages were packed with DBM bone grafting material. One cage each along with the bone grafting material was then packed into the interbody spaces from C5-C7 with one cage into each interbody level. After the cages were placed, the anterior cervical plate was stabilized to the C5-C7 vertebrae using 2 screws at each each level. Total 6 screws were placed. After confirming placement of the hardware with AP and lateral C-arm imaging, the screws were locked into the plate using the locking mechanism and torque limiting screwdriver. After the hardware was placed and confirmed with AP and lateral C-arm imaging, the wound was irrigated with sterile normal saline. The platysma muscle and the subcutaneous tissue was closed with 2-0 Vicryl. The skin was closed with 4-0Monocryl and Steri-Strips. Patient tolerated the procedure well. Patient was transferred recovery room in stable condition. There were no complications. Complications: none Post-operative Condition: stable Disposition: PACU Plan for aftercare: Admit to inpatient hospital
[2022-08-26] MEDS: HYDROMORPHONE 2 MG INJ IV ×2 (17:39→17:45)
[2022-08-26] MEDS: OXYCODONE IR 5 MG TABLET PO (18:07)
[2022-08-26] MEDS: hydrOXYzine pamoate 25 MG CAPSULE PO (18:07)
[2022-08-26] MEDS: LACTATED RINGERS 1,000 ML 125 ML IV (18:44)
--- NOTE | 2022-08-26 19:49 | PC.NURSE ---
Pt is A&OX4 on 2 LNC, arrived from PACU at 1830. LR IVF running at 125ml/hr, SCDS placed. She is using IS and talking with . dressing under soft collar c/d/i. Oriented to room. Report given to oncoming RN.
[2022-08-26] MEDS: GABAPENTIN 300 MG CAPSULE 600 MG PO (20:51)
[2022-08-26] MEDS: METOPROLOL IR 25 MG TABLET 12.5 MG PO (20:51)
[2022-08-26] MEDS: OXYCODONE IR 10 MG TABLET PO (20:52)
[2022-08-26] MEDS: DULOXETINE 30 MG CAPSULE PO (20:52)
[2022-08-26] MEDS: ATORVASTATIN 20 MG TABLET 40 MG PO (20:53)
[2022-08-26] MEDS: DOCUSATE 100 MG CAPSULE PO (20:53)
[2022-08-26] MEDS: PANTOPRAZOLE DR 40 MG TABLET PO (20:53)
[2022-08-26] MEDS: SENNOSIDES 8.6 MG TABLET 17.2 MG PO (20:53)
[2022-08-26] MEDS: OXYCODONE ER 20 MG TAB PO (22:32)
[2022-08-27] MEDS: HYDROMORPHONE 0.5 MG INJ IV (00:09)
[2022-08-27 00:13] VITALS: BP 158/76; PULSE 74; RESP 18; TEMP 36.1; O2SAT 94
[2022-08-27] MEDS: LACTATED RINGERS 1,000 ML 125 ML IV (03:00)
[2022-08-27 03:09] VITALS: BP 156/85; PULSE 76; RESP 18; TEMP 36.1; O2SAT 96
[2022-08-27] MEDS: CEFAZOLIN 2 GM/100 ML PREMIX 100 ML IV (06:13)
[2022-08-27] MEDS: ONDANSETRON 4 MG/2 ML INJ IV (06:13)
[2022-08-27] MEDS: LEVOTHYROXINE 100 MCG TABLET PO (06:52)
[2022-08-27] MEDS: OXYCODONE ER 20 MG TAB PO (06:53)
[2022-08-27] MEDS: LEVOTHYROXINE 25 MCG TABLET PO (06:53)
--- NOTE | 2022-08-27 07:45 | P.DS_ITS ---
History of Present Illness History of Present Illness Date Patient Seen: 08/27/22 Time Patient Seen: 07:45 Chief complaint: Cervical Fusion Anterior Narrative: Patient is complaining of moderate neck pain this morning. She is having some hoarseness and mild difficulty swallowing, notes she has a baseline hernia which impairs her swallowing. Her nausea is improving. She is complaining of some mild anterior chest wall pain, denies any chest pressure or pain radiating down the arm or into the jaw. She denies any numbness or tingling. 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 Overall she is feeling moderately well and we will hopefully discharge home today. Discharge Providers Provider Date of admission: 08/26/22 11:43 Discharge Date: 08/27/22 Primary care physician: EMMANUEL Stone Consults: 08/26/22 18:34 Consult to Occupational Therapy Evaluate & Treat Comment: Physician Instructions: Evaluate and treat Consult to Physical Therapy Evaluate & Treat Comment: Physician Instructions: Evaluate and Treat Discharge provider: Debby Howard PA-C Summary Hospital Course Discharge Diagnosis: 1. C5-6, C6-7 spinal stenosis 2. Cervical spondylosis with radiculopathy Hospital Course: Operative Date/Time/Diagnoses Date of procedure: 08/26/22 Time of procedure: 14:25 Procedure & Clinicians Procedure: 1.? C5-6 C6-7 anterior cervical diskectomy and fusion 2.? C5-6 C6-7 anterior interbody cage placement 3.? C5-6 C6-7 anterior instrumentation with plate and screw placement in C5-C6 and C7 vertebrae 4.? Utilization of microsurgical technique and operating microscope Same procedure as scheduled: Yes Indications: Patient has been having chronic neck pain and worsening cervical radiculopathy. Patient failed multiple conservative management with worsening pain weakness and numbness in her upper extremity.? Patient has been having difficulty performing activity of daily living.? After discussing risks benefits of treatment options, patient elected proceed with surgery. Surgeon: Chet Spence [employer] Technician: Siva Richmond Click Yes if Unassisted: No Anesthesia Type: General Operative Notes Closure Type: primary Specimen(s): none sent Prosthetic devices, grafts, tissues, transplants, or devices: Globus Extend Plate, Cervical Hedron C cages Estimated Blood Loss (mL): 5 Blood products transfused: none Status at Discharge Cognitive/behavioral status at discharge: at baseline, oriented Functional status at discharge: independent ambulation Overall status at discharge: patient is progressing back to baseline Exam Vital Signs (past 8 hours): - 08/27/22 00:13 08/27/22 03:09 Temperature 96.9 F L 97.0 F L Pulse Rate 74 76 Respiratory Rate 18 18 Blood Pressure 158/76 H 156/85 H Pulse Oximetry 94 96 Oxygen Flow Rate 0 2 Oxygen Delivery Method Nasal Cannula Oxygen Flow Rate 2 Narrative Exam Narrative: Pleasant 62-year-old female, resting comfortably in bed, no acute distress. Cervical dressing is clean, dry, intact. Soft cervical collar is in place. B ilateral upper extremity: Motor functions are grossly intact, sensation is grossly intact to light touch. Objective Labs Labs: Laboratory Results - last 24 hr 08/26/22 12:00 SARS-CoV-2 (PCR) Negative [facility] Medical History Atypical chest pain Rdoríguez's esophagus Coronary artery vasospasm Edema Former smoker GERD (gastroesophageal reflux disease) Hiatal hernia History of COVID-19 (03/2022) HLD (hyperlipidemia) HTN (hypertension) Ischemic cardiomyopathy Migraines Neuropathy Non-STEMI (non-ST elevated myocardial infarction) (~08/2015) Numbness PVCs (premature ventricular contractions) Scoliosis Vasospastic angina Venous insufficiency Surgical History H/O: hysterectomy History of bilateral tubal ligation History of bowel resection (09/2019) History of surgery History of surgery History of surgery (04/2020) History of total left hip replacement (01/12/19) History of total left knee replacement (08/13/21) History of total right hip replacement Hx of cardiac catheterization (09/05/15) Hx of thyroidectomy (03/2020) Hx of tooth extraction (11/25/18) S/P epidural steroid injection Social History household members: significant other Smoking Status: Former smoker alcohol intake: current Discharge Assessment & Plan Assessment and Plan Assessment: Stable status post C5-6, C6-7 ACDF -chronic pain management Plan of Treatment: -mobilize with OT/PT. Weightbearing as tolerated. No bending, lifting, twisting x6 weeks. Soft collar to remain in place for comfort -continue multimodal pain management. The patient has her pain management medications at home already -DC home once cleared by PT/OT Discharge Plan Discharge Plan Patient Disposition: Home Discharge orders & Medications Prescriptions: New docusate sodium 100 mg Capsule 100 mg PO BID PRN (Reason: constipation) Qty: 30 0RF hydroxyzine pamoate 25 mg Capsule 25 mg PO Q4HR PRN (Reason: Muscle spasm/pain/nausea) Qty: 60 0RF ondansetron 4 mg tablet,disintegrating 4 mg PO Q6H PRN (Reason: nausea and vomiting) Qty: 20 0RF Continued atorvastatin [Lipitor] 40 MG tablet 40 mg PO HS Qty: 0 gabapentin [Neurontin] 400 MG capsule 600 mg PO TID Qty: 0 morphine 15 MG tablet extended release 15 mg PO BID Qty: 0 oxycodone 5 MG capsule 20 mg PO Q4H PRN (Reason: Breakthrough Pain) Qty: 0 furosemide 40 MG tablet 40 mg PO QDAY PRN (Reason: Edema) Qty: 0 potassium chloride 10 mEq Tablet Extended Release 20 meq PO DAILY pantoprazole 40 mg Tablet,Delayed Release (Dr/Ec) 40 mg PO BID levothyroxine 125 mcg Tablet 125 mcg PO DAILY metoprolol tartrate 25 mg Tablet 12.5 mg PO BID duloxetine 30 mg Capsule,Delayed Release(Dr/Ec) 30 mg PO BID aspirin 81 mg tablet,delayed release (DR/EC) 81 mg PO DAILY acetaminophen 650 mg Tablet Extended Release 1,300 mg PO BID Follow up/Referrals: Blayne Mcrae FNP-C [Primary Care Provider] - Chet Spence MD [Physician] - As previously scheduled (10-14 days for postoperative visit) Diet/Activity/Treatments Diet: Diet as Tolerated Other treatments: Diet: -Stick with soft, easy to swallow foods for the first few days. Dressing/Wound care: -Keep dressing in place until postoperative follow-up office visit. -Okay to shower. Keep wound out of direct water stream. Can use PressNSeal plastic wrap to protect from shower stream. No soaking or submerging until all the scabs fall off (approximately 6 weeks). -Please call the office if dressing becomes wet, soiled, or saturated. Activities: -Wear collar when sitting upright or standing. May take off to eat and shower. Can sleep without collar, but you may find it more comfortable to wear while sleeping. -Limit bending, lifting, twisting. -Continue with home exercises as directed by your physical therapist. -Ice your incision as needed for pain/inflammation/swelling. You can heat to the back of your neck as needed for pain. Protect your skin with a folded pillowcase. -Incentive Spirometer (breathing device from hospital): 5-10xs every hour while awake for the first 1-2 weeks. Follow-up: -Follow-up with your surgeon or PA in the office in 10-14 days after surgery. -Follow-up with your surgeon 6 weeks postoperatively. Call the office if you have chest pain, shortness of breath, significant swelling that will not resolve with elevating, fever over 101?, significantly worsening pain, or are concerned you might need to go to the Emergency Room. [facility]: [phone] Skin/Wound/Dressing Care Report to your healthcare provider any signs of infection, such as:: chills, fever, night sweats, unusual drainage and unusual redness Visit Report/Discharge Packet Instructions: DI for Anterior Cervical Discectomy and Fusion, DI for Prescription Opioid Use Stand Alone Forms: Patient Portal/API, Stroke Signs & Symptoms, Surgery Discharge Discharge Data Primary Care Provider: Blayne Mcrae VTE Deep Vein Thrombosis/Pulmonary Embolism Present on Admission: No
[2022-08-27 08:00] VITALS: BP 146/83; PULSE 81; RESP 17; TEMP 35.7; O2SAT 95
--- NOTE | 2022-08-27 08:15 | PT.IIE ---
Current Diagnoses Other spondylosis with radiculopathy, cervical region (08/26/22) Spinal stenosis, cervical region (08/26/22) Surgery Performed Operation Date: 08/26/22 13:45 Actual Procedures p C5-6, C6-7 ACDF w/ anterior instrumentation - Chet Spence MD Surgical History (Last Reviewed 08/27/22 @ 07:48 by Debby Howard PA-C) H/O: hysterectomy History of bilateral tubal ligation History of bowel resection (09/2019) History of surgery History of surgery History of surgery (04/2020) History of total left hip replacement (01/12/19) History of total left knee replacement (08/13/21) History of total right hip replacement Hx of cardiac catheterization (09/05/15) Hx of thyroidectomy (03/2020) Hx of tooth extraction (11/25/18) S/P epidural steroid injection Medical History (Last Reviewed 08/27/22 @ 07:48 by Debby Howard PA-C) Atypical chest pain Rodríguez's esophagus Coronary artery vasospasm Edema Former smoker GERD (gastroesophageal reflux disease) Hiatal hernia History of COVID-19 (03/2022) HLD (hyperlipidemia) HTN (hypertension) Ischemic cardiomyopathy Migraines Neuropathy Non-STEMI (non-ST elevated myocardial infarction) (~08/2015) Numbness PVCs (premature ventricular contractions) Scoliosis Vasospastic angina Venous insufficiency Physical Therapy Inpatient Evaluation/Re-Eval M1 PT/OT-IP Prior Functional Status Start: 08/27/22 07:31 Freq: NEEDED Status: Discharge Protocol: Document 08/27/22 08:07 AMB (Rec: 08/27/22 08:17 AMB [id number]) Medical Review Prior Functional Status Medical History Reviewed Yes Mobility and Gait I with all ADLs, no AD. Social History Household Members significant other Living Arrangements House Number of Floors (Floors) Two Floors Number of Stairs To Enter/Railing? 3, no railing Home Environment Walk in Shower Employment Status [employer] Employed Additional Social History Comment is retired M1 PT/OT-IP Prior Functional Status Start: 08/27/22 13:22 Freq: NEEDED Status: Active Protocol: Document 08/27/22 08:15 [facility] (Rec: 08/27/22 13:37 [facility] [id number]) Medical Review Prior Functional Status Medical History Reviewed Yes Mobility and Gait I with all ADLs, no AD. Social History Household Members significant other Living Arrangements House Number of Floors (Floors) Two Floors Number of Stairs To Enter/Railing? 3, no railing Home Environment Standard Height Toilet,Walk in Shower Home Equipment Front Wheel Walker,Straight Cane Employment Status [employer] Employed Additional Social History Comment is retired M2 PT-IP Current Condition Start: 08/27/22 07:31 Freq: NEEDED Status: Discharge Protocol: Document 08/27/22 08:07 AMB (Rec: 08/27/22 08:17 AMB [id number]) Physical Therapy Current Condition Current Condition Evaluation Date 08/27/22 Treatment Diagnosis C56 anterior fusion Onset Date 08/26/22 M3 PT-IP Subjective Start: 08/27/22 07:31 Freq: NEEDED Status: Discharge Protocol: Document 08/27/22 08:07 AMB (Rec: 08/27/22 08:17 AMB [id number]) Subjective Physical Therapy Visit Type Type Initial Evaluation Visit Start Time 07:30 Visit Stop Time 08:00 Total Visit Minutes 30 Physical Therapy Visit Comments Patient Comments Pt ready to get up, has been up with nursing to bathroom Therapy Pain Assessment Pain When Pain Assessed At Rest Pain Present Pain Present Pain Reported Location neck Intensity 4 Scale Used Numeric (0 - 10) M4 PT-IP Mobility and Gait Start: 08/27/22 07:31 Freq: NEEDED Status: Discharge Protocol: Document 08/27/22 08:07 AMB (Rec: 08/27/22 08:17 AMB [id number]) PT-Bed Mobility Assessment Rolling Type of Rolling Log Rolling Level of Assist Standby Assistance Supine to Sit Supine to Sit Standby Assistance Scooting Scooting to Edge of Bed Independent PT-Transfer Assessment Sit to and From Stand Sit to and from Stand Standby Assistance Equipment Transfer Assistive Device Gait Belt Transfers Transfer Destination Chair,Toilet Transfer Technique Stand Step Pivot Transfer Ability Level of Assist Standby Assistance Gait Assessment Gait Gait Assistance Required: Contact Guard Assist Distance (Feet) 250 Assistive Devices Assistive Device Gait Belt Gait Deviations General Gait Pattern Wide Based Gait Stair Climbing Assessment Evaluation Level of Assist On Stairs Contact Guard Assistance Devices Stair Climbing Assistive Devices None Technique/Endurance Stair Climbing Direction Ascend and Descend Stair Climbing Technique Step Over Step M7 PT-IP Assessment and Plan Start: 08/27/22 07:31 Freq: NEEDED Status: Discharge Protocol: Document 08/27/22 08:07 AMB (Rec: 08/27/22 08:17 AMB [id number]) PT Summary Assessment and Plan Potential Rehabilitation Potential Good Status of Condition at Evaluation Stable Summary Impairments Pain Assessment Summary Parisa had C5-6 anterior fusion. She was able to perform all bed mobility and transfers with supervision and CGA for gait without AD and stairs. Has 3 steps to enter home and was able to ascend and descend without railing with CGA. Pt has had multiple prior orthopedic surgeries and feels that would be able to help appropriately at home. Cleared for d/c home when medically stable. Goals Bed Mobility Goal Independent Transfer Goal Independent Gait Goal Standby Assistance Gait Distance 200 Other Goals 3 without railing Days to Meet Goals 1 Frequency of Treatment Frequency Of Treatment Discharge Treatment Plan Physical Therapy Treatment Plan Bed Mobility Training,Transfer Training,Gait Training Precautions Cervical Spine Precautions Soft Collar for Comfort,No Heavy Lifting,Log Roll Recommendations To Nursing Amount of Assist Needed 1 Person Assist Discharge Recommendations PT Discharge Recommendations Home with Assistance Transportation Needs at Discharge Private Vehicle
[2022-08-27] MEDS: PANTOPRAZOLE DR 40 MG TABLET PO (08:25)
[2022-08-27] MEDS: GABAPENTIN 300 MG CAPSULE 600 MG PO (08:25)
[2022-08-27] MEDS: DULOXETINE 30 MG CAPSULE PO (08:26)
[2022-08-27] MEDS: POTASSIUM CHLORIDE 10 MEQ TAB 20 MEQ PO (08:26)
[2022-08-27] MEDS: ACETAMINOPHEN 325 MG TABLET 650 MG PO (08:26)
[2022-08-27] MEDS: DOCUSATE 100 MG CAPSULE PO (08:26)
[2022-08-27] MEDS: FUROSEMIDE 40 MG TABLET PO (08:26)
[2022-08-27] MEDS: METOPROLOL IR 25 MG TABLET 12.5 MG PO (08:27)
--- NOTE | 2022-08-27 08:38 | OT.IP.EVAL ---
Current Diagnoses Other spondylosis with radiculopathy, cervical region (08/26/22) Spinal stenosis, cervical region (08/26/22) Surgery Performed Operation Date: 08/26/22 13:45 Actual Procedures p C5-6, C6-7 ACDF w/ anterior instrumentation - Chet Spence MD Past Medical History (Last Reviewed 08/27/22 @ 07:48 by Debby Howard PA-C) Atypical chest pain Rodríguez's esophagus Coronary artery vasospasm Edema Former smoker GERD (gastroesophageal reflux disease) Hiatal hernia History of COVID-19 (03/2022) HLD (hyperlipidemia) HTN (hypertension) Ischemic cardiomyopathy Migraines Neuropathy Non-STEMI (non-ST elevated myocardial infarction) (~08/2015) Numbness PVCs (premature ventricular contractions) Scoliosis Vasospastic angina Venous insufficiency Surgical History (Last Reviewed 08/27/22 @ 07:48 by Debby Howard PA-C) H/O: hysterectomy History of bilateral tubal ligation History of bowel resection (09/2019) History of surgery History of surgery History of surgery (04/2020) History of total left hip replacement (01/12/19) History of total left knee replacement (08/13/21) History of total right hip replacement Hx of cardiac catheterization (09/05/15) Hx of thyroidectomy (03/2020) Hx of tooth extraction (11/25/18) S/P epidural steroid injection Occupational Therapy Inpatient Evaluation/Re-Eval M1 PT/OT-IP Prior Functional Status Start: 08/27/22 07:31 Freq: NEEDED Status: Discharge Protocol: Document 08/27/22 08:07 AMB (Rec: 08/27/22 08:17 AMB [id number]) Medical Review Prior Functional Status Medical History Reviewed Yes Mobility and Gait I with all ADLs, no AD. Social History Household Members significant other Living Arrangements House Number of Floors (Floors) Two Floors Number of Stairs To Enter/Railing? 3, no railing Home Environment Walk in Shower Employment Status [employer] Employed Additional Social History Comment is retired M1 PT/OT-IP Prior Functional Status Start: 08/27/22 13:22 Freq: NEEDED Status: Active Protocol: Document 08/27/22 08:15 [facility] (Rec: 08/27/22 13:37 [facility] [id number]) Medical Review Prior Functional Status Medical History Reviewed Yes Mobility and Gait I with all ADLs, no AD. Social History Household Members significant other Living Arrangements House Number of Floors (Floors) Two Floors Number of Stairs To Enter/Railing? 3, no railing Home Environment Standard Height Toilet,Walk in Shower Home Equipment Front Wheel Walker,Straight Cane Employment Status [employer] Employed Additional Social History Comment is retired M2 OT-IP Current Condition Start: 08/27/22 13:22 Freq: Status: Active Protocol: Document 08/27/22 08:15 [facility] (Rec: 08/27/22 13:37 [facility] [id number]) Occupational Therapy Current Condition Current Condition Evaluation Date 08/27/22 Treatment Diagnosis S/p C5-6, C6-7 ACDF Diagnosis Onset Date 08/27/22 Post Operative Precautions Cervical Spine Precautions Soft Collar for Comfort,Soft Collar at all Times,Rigid Collar,No Heavy Lifting,Log Roll M3 OT- IP Subjective and Pain Start: 08/27/22 13:22 Freq: Status: Active Protocol: Document 08/27/22 08:15 [facility] (Rec: 08/27/22 13:37 [facility] [id number]) OT- Subjective Occupational Therapy Visit Type Type Initial Evaluation Visit Start Time 08:15 Visit Stop Time 08:28 Total Visit Minutes 23 Occupational Therapy Visit Comments Patient Comments Pt agreed to get dressed. Patient/Caregiver Goals To go home. OT Pain Assessment Pain When Pain Assessed At Rest Pain Present Pain Present Denied Pain M4 OT- IP ADL's Start: 08/27/22 13:22 Freq: Status: Active Protocol: Document 08/27/22 08:15 [facility] (Rec: 08/27/22 13:37 [facility] [id number]) OT [id number] Comments OT Self-Feeding Comments Per pt no issues, pt is aware to eat upright and have softer food initially, information already given for pt. OT ADL-Grooming General Evaluation Grooming Ability Standby Assistance Comments OT Grooming Comments set-up assist OT ADL-Oral Care General Eval Oral Care Ability Independent Comments Oral Care Comments Initial vc to spit into a cup versus hinge at her hips in order to best follow her cervical precautions. OT ADL-Dressing General Eval Upper Body Dressing Ability Independent Lower Body Dressing Ability Standby Assistance Comments OT Dressing Comments Pt able to comfortably bring her foot up to theron her socks and shoes. Pt able to theron/ doff her soft collar with increased time. OT ADL-Toileting Comments OT Toileting Comments Pt states has been able to use the bathroom on her own. OT ADL-Bathing Comments OT Bathing Comments Not performed. M5 OT- IP IADL's Start: 08/27/22 13:22 Freq: Status: Active Protocol: Document 08/27/22 08:15 [facility] (Rec: 08/27/22 13:37 [facility] [id number]) OT-Instrumental Activities of Daily Living Home Safety Awareness Home Safety Comments Pt has a supportive to be able to assist for all her needs as needed. M6 OT- IP Functional Cognition Start: 08/27/22 13:22 Freq: Status: Active Protocol: Document 08/27/22 08:15 [facility] (Rec: 08/27/22 13:37 [facility] [id number]) Cognitive Factors Limiting Selfcare Function Cognitive Ability Level of Alertness Alert Patient Orientation Name,Age,Birthday,Month,Date, Year,Day of Week,Place, Situation Attention Span Ability Capable of Focused Attention, Capable of Sustained Attention Ability to Follow Commands Able to Follow Multi-Step Commands Memory Description No Deficits Noted Safety Awareness No Deficits Noted Problem Solving Ability No deficits Noted Cognitive Comments Cognitive Assessment Comments Pt is intact. OT- Vision and Hearing OT- Hearing Assessment OT- Hearing Assessment WFL M7 OT- IP Mobility and Balance Start: 08/27/22 13:22 Freq: Status: Active Protocol: Document 08/27/22 08:15 [facility] (Rec: 08/27/22 13:37 [facility] [id number]) OT- Bed Mobility Assessment Supine to Sit Supine to Sit Assist Independent Sit to Supine Sit to Supine Assist Independent OT-Transfer Assessment Sit to and From Stand Sit to and from Stand Independent Transfers Transfer Ability Independent Technique Transfer Destination Chair Devices Transfer Assistive Devices None Comments Mobility Comments Pt is independent in the room. OT- Balance Assessment Sitting Balance and Reactions Static Sitting Balance Ability Normal Dynamic Sitting Balance Ability Normal Standing Balance and Reactions Static Standing Balance Ability Normal Dynamic Standing Balance Ability Good M9 OT- IP Assessment and Plan Start: 08/27/22 13:22 Freq: Status: Active Protocol: Document 08/27/22 08:15 [facility] (Rec: 08/27/22 13:37 [facility] [id number]) OT Summary Assessment and Plan Potential Rehabilitation Potential Excellent Analytic Complexity at Evaluation Low Summary OT Impairments Pain,Bathing Progress Towards Goals Progressing Toward Goals Assessment Summary Pt doing well and mainly just needing initial education for cervical precautions for mobility and ADL needs. Pt to go home with her to assist when medically stable. Goals Bathing Goal Independent Days to Meet Goals 1 Frequency of Treatment Frequency Of Treatment Once a Day Treatment Plan OT Treatment Plan ADL Training,Functional Mobility,Patient/Family Education,Discharge Planning Discharge Recommendations OT Discharge Recommendations Home with Assistance Transportation Needs at Discharge Private Vehicle
[2022-08-27 08:48] LABS: Hematocrit 39.2 % (36-46)
[2022-08-27 09:55] VITALS: O2SAT 94
--- NOTE | 2022-08-27 11:39 | PC.NURSE ---
IV removed. Discussed s/s of infection, s/s of stroke, and pain management. Went over narcotic use and making sure to stay hydrated, take stool softners, and not to drive while taking. Went over dressing changes, showers, and follow up appt. Discussed new medications. pt had no further questions was wheeled out by RN to private vehicle via wheelchair to spouse.
== END 2022-08-27 10:50 | disposition home or self-care (01) | DRG 473 ==
PROVIDERS: Physician Assistant; Admitting Provider Orthopaedic Surgery Orthopaedic Surgery of the Spine; PCP Nurse Practitioner; Referring Provider Orthopaedic Surgery Orthopaedic Surgery of the Spine; Visit Provider Orthopaedic Surgery Orthopaedic Surgery of the Spine
PROC: 0RG20A0 Fusion of 2 or more Cervical Vertebral Joints with Interbody Fusion Device, Anterior Approach, Anterior Column, Open Approach (ICD-10-PCS; principal; 2022-08-26 13:45)
DX: M48.02 Spinal stenosis, cervical region (principal); M47.22 Other spondylosis with radiculopathy, cervical region; E78.5 Hyperlipidemia, unspecified; I10 Essential (primary) hypertension; K21.9 Gastro-esophageal reflux disease without esophagitis; Z87.891 Personal history of nicotine dependence; Z20.822 Contact with and (suspected) exposure to COVID-19
CPT/HCPCS: 36415; 72040; 76000; 85014; 85018; 87635; 94760; 97161; 97165; 97535; C9803; C1713; J0171; J0330; J0690; J1100; J1170; J2250; J2405; J2704; J3010

== ENCOUNTER → 2023-07-04 10:52 | Outpatient (CLI) | payer OTHER, SELFPAY ==
[2022-08-26 15:48] VITALS: BMI 27.6
[2023-07-04 11:40] LABS: Add Manual Diff / Slide Review NO; Basophils Absolute Auto 100 /uL (0-100); Eosinophils Absolute Auto 500 /uL (0-450); Eosinophils Percent Auto 8.9 % (2-4); Hematocrit 36.2 % (36-46); Hemoglobin 12.1 g/dL (12.0-16.0); Lymphocytes Absolute Auto 1700 /uL (1100-4500); Lymphocytes Percent Auto 28.8 % (25-40); Mean Corpuscular HGB Conc 33.3 % (30-36); Mean Corpuscular Hemoglobin 30.8 PG (26-34); Mean Corpuscular Volume 92.4 fL (80-100); Monocytes Absolute Auto 500 /uL (0-900); Monocytes Percent Auto 7.8 % (3-14); Neutrophils Absolute Auto 3200 /uL (1500-7000); Neutrophils Percent Auto 53.5 % (50-75); Platelet Count 227 X10^3/uL (150-400); Red Blood Cell Count 3.92 X10^6/uL (4.0-5.2); Red Cell Distribution Width 12.8 % (11.6-14.8)
[2023-07-04 11:52] LABS: Erythrocyte Sedimentation Rate 18 MM/HR (0-20)
[2023-07-04 12:06] LABS: C-Reactive Protein Quant 0.9 mg/dL (<1.0)
== END ==
PROVIDERS: PCP Nurse Practitioner; Referring Provider Physician Assistant Medical; Visit Provider Physician Assistant Medical
DX: Z01.818 Encounter for other preprocedural examination (principal); R70.0 Elevated erythrocyte sedimentation rate; R79.82 Elevated C-reactive protein (CRP)
CPT/HCPCS: 36415; 85025; 85651; 86140

== ENCOUNTER → 2023-07-07 15:10 | Outpatient (CLI) | payer OTHER, SELFPAY ==
[2022-08-26 15:48] VITALS: BMI 27.6
--- NOTE | 2023-07-07 | DI.CT.S_ITS ---
PROCEDURE: CT LE LT WO CON INDICATIONS: Presence of left artificial hip joint TECHNIQUE: Noncontrast 3 mm axial sections acquired through the bony pelvis. Additional 3 mm axial sections acquired through the symptomatic hip joint, with coronal and sagittal reformats. COMPARISON: None. FINDINGS: Image quality: Excellent. Bones: Patient is status post bilateral total hip arthroplasty with significant beam hardening artifacts seen. There is increased radiolucency superior and medial to the left acetabular prosthesis concerning for osteolysis and/or hardware loosening in this area. No definite loosening adjacent to the proximal femoral shaft prosthesis is noted. No acute fracture or dislocation. No suspicious bony lesions. Soft tissues: There is no gross soft tissue mass or drainable fluid collection. No peritoneal free fluid or free air. No pelvic lymphadenopathy by size criteria. No abnormal soft tissue calcifications. IMPRESSION: 1. Prior bilateral total hip arthroplasty. Increased radiolucencies adjacent to superior and medial aspect of left acetabular prosthesis concerning for hardware loosening and/or osteolysis. No periprosthetic fracture. No dislocation. 2. No gross left hip soft tissue abnormality. Dictated by: Aleksandar Young M.D. on 07/08/2023 at 15:50 Approved by: Aleksandar Young M.D. on 07/08/2023 at 15:56
== END ==
PROVIDERS: PCP Nurse Practitioner; Referring Provider Physician Assistant Medical; Visit Provider Physician Assistant Medical
DX: Z09 Encounter for follow-up examination after completed treatment for conditions other than malignant neoplasm; Z96.643 Presence of artificial hip joint, bilateral
CPT/HCPCS: 73700